=== PATIENT | female | born 1985 | race African-American/Black ===

== ENCOUNTER 2017-02-10 04:27 | Emergency (ER) | payer MEDICAID ==
[~2017-02-10 04:27] MED LIST: VICODIN 5/500 T1 TAB PO
== END 2017-02-10 07:17 | disposition home or self-care (01) ==
LOC: CED 04:27
DX: S66.221A Laceration of extensor muscle, fascia and tendon of right thumb at wrist and hand level, initial encounter (principal); S71.111A Laceration without foreign body, right thigh, initial encounter; S80.811A Abrasion, right lower leg, initial encounter; W13.4XXA Fall from, out of or through window, initial encounter; Y92.009 Unspecified place in unspecified non-institutional (private) residence as the place of occurrence of the external cause; F17.210 Nicotine dependence, cigarettes, uncomplicated; Z23 Encounter for immunization
CPT/HCPCS: 12002; 90471; 90715; 99284

== ENCOUNTER 2017-02-20 15:01 | Emergency (ER) | payer MEDICAID | END 2017-02-20 15:31 | disposition home or self-care (01) | LOC: CFTX 15:01 → CED 15:01 → CFTX 15:15 | DX: S71.111D Laceration without foreign body, right thigh, subsequent encounter (principal); S81.811D Laceration without foreign body, right lower leg, subsequent encounter; F17.200 Nicotine dependence, unspecified, uncomplicated; W18.02XD Striking against glass with subsequent fall, subsequent encounter | CPT/HCPCS: 99281 ==